=== PATIENT | female | born 1975 | race African-American/Black ===

== ENCOUNTER 2016-10-03 07:38 | Emergency (ER) | payer OTHER ==
[~2016-10-03] VITALS: Ht 172.7 cm; Wt 120.3 kg
[~2016-10-03 07:38] MED LIST: ALDACTONE50 MG PO; CELEXA20 MG PO; UNABLE TO REMEMBER
[2016-10-03 09:33] LABS: EOSINOPHIL (%) 2.7 % (0-5); EOSINOPHIL COUNT 0.2 K/uL (0-0.3); IMMATURE GRANULOCYTE (%) 0.3 % (0.0-0.7); INSTRUMENT ABS NEUTROPHIL CT 4.3 K/uL; LYMPHOCYTE COUNT 2.8 K/uL (1.0-2.8); MCH 29.7 PG (29.0-34.0); MEAN PLAT.VOLUME 9.3 uM^3 (9.5-12.4); MONOCYTE COUNT 0.6 K/uL (0-0.8); NEUTROPHIL (%) 53.8 % (45-76); NEUTROPHIL COUNT 4.3 K/uL (1.8-6.4); PLATELET COUNT 347 K/uL (156-360); RBC DIS.WIDTH-CV 13.3 % (11.8-14.6); RBC DIS.WIDTH-SD 44.2 % (39-53); RED BLOOD COUNT 4.89 M/uL (3.80-5.20); WHITE BLOOD COUNT 7.9 K/uL (4.1-10.2)
[2016-10-03 09:44] LABS: CHLORIDE 102 mEq/L (99-109); POTASSIUM 4.1 mEq/L (3.7-5.4); SODIUM 134 mEq/L (136-147)
[2016-10-03 09:46] LABS: GLUCOSE 96 mg/dL (70-99)
[2016-10-03 09:47] LABS: ANION GAP 10 MEQ/L (2-14)
[2016-10-03 09:48] LABS: TOTAL BILIRUBIN 0.3 mg/dL (0.0-1.0)
[2016-10-03 09:50] LABS: ALKALINE PHOSPHATASE 48 IU/L (3-129); GFR ESTIMATE (CALCULATED) > 59 mL/min/
[2016-10-03 09:51] LABS: UREA NITROGEN (BUN) 15 mg/dL (9-23)
[2016-10-03 09:53] LABS: LIPASE 20 U/L (1.0-51.0)
[2016-10-03 10:06] LABS: ADD MIUA? YES; BILIRUBIN NEGATIVE; BLOOD SMALL; COLOR YELLOW ((YELLOW)); GLUCOSE (STRIP) NEGATIVE; KETONES NEGATIVE; LEUKOCYTES NEGATIVE; NITRITE NEGATIVE; PROTEIN (STRIP) NEGATIVE; SPECIFIC GRAVITY 1.026 (1.000-1.030); UROBILINOGEN 0.2 MG/DL (0.2-1.0)
[2016-10-03 10:17] LABS: BACTERIA RARE /HPF; EPITHELIAL CELLS RARE /HPF; MUCUS TRACE /LPF; WHITE BLOOD CELLS 0-5 /HPF (0-5)
[2016-10-03] MEDS ORDERED: TYLENOL WITH C1 EACH PO (10:24)
[2016-10-03] MEDS ORDERED: FLEXERIL10 MG PO (10:24)
[2016-10-03 10:53] VITALS: BP 135/95
== END 2016-10-03 11:02 | disposition home or self-care (01) ==
LOC: EME 07:38
PROVIDERS: Emergency Medicine
DX: M54.5 Low back pain (principal); F32.9 Major depressive disorder, single episode, unspecified
CPT/HCPCS: 72100; 72220; 80053; 81003; 83690; 85025; 99281; 99285; J1885; J7030